=== PATIENT | female | born 1990 | race Caucasian/White ===

== ENCOUNTER 2019-11-03 13:35 | Emergency (ER) | payer MEDICAID ==
[~2019-11-03] VITALS: Ht 160 cm; Wt 68.0 kg
[2019-11-03 14:28] LABS: CLARITY,URINE CLOUDY (Clear); COLOR,URINE YELLOW (Yellow); GLUCOSE, URINE 100 mg/dl (Neg); KETONES,URINE NEGATIVE (Neg); LEUKOCYTE ESTERASE ,URINE MODERATE (Neg); NITRITES, URINE NEGATIVE (Neg); OCCULT BLOOD,URINE NEGATIVE (Neg); PROTEIN,URINE NEGATIVE (Neg); URINE HCG POSITIVE (NEG); UROBILINOGEN,URINE 0.2 E.U/dL (0.2-1.0)
[2019-11-03 14:29] LABS: UA COLLECTION TYPE CLN CATCH MIDSTREAM
[2019-11-03 14:30] LABS: BASOPHILS % (AUTO) 0.2 % (0-1); EOSINOPHILS # (AUTO) 0.1 X10'3 (0-0.9); EOSINOPHILS % (AUTO) 1.3 % (0-6); HEMATOCRIT 35.9 % (35.0-45.0); LYMPHOCYTES # (AUTO) 1.8 X10'3 (1.1-4.8); LYMPHOCYTES % (AUTO) 20.4 % (21-51); MEAN CORPUSCULAR HEMOGLOBIN 28.7 PG (27.0-31.0); MEAN CORPUSCULAR HGB CONC 33.5 g/dL (33.0-36.5); MEAN CORPUSCULAR VOLUME 85.6 FL (78-98); MONOCYTES # (AUTO) 0.5 X10'3 (0-0.9); NEUTROPHILS # (AUTO) 6.4 X10'3 (1.8-7.7); NEUTROPHILS % (AUTO) 72.1 % (42-75); PLATELET COUNT 236 X10'3 (140-440); RED BLOOD COUNT 4.19 X10'6 (4.20-5.60); RED CELL DISTRIBUTION WIDTH 13.6 % (11.5-14.5); WHITE BLOOD COUNT 8.9 X10'3 (4.5-11.0)
[2019-11-03 14:36] LABS: MUCUS STRANDS MODERATE /LPF (Neg)
[2019-11-03 14:37] LABS: BACTERIA,URINE 1+ /HPF (Neg); RBC,URINE 0-2 /HPF (0-2); WBC,URINE 0-4 /HPF (0-4)
[2019-11-03 14:38] LABS: SQUAMOUS EPITHELIAL CELL,UR MANY /LPF (FEW)
[2019-11-03 14:47] LABS: ALANINE AMINOTRANSFERASE 18 U/L (12-78); ALBUMIN 3.2 G/DL (3.4-5.0); ALBUMIN/GLOBULIN RATIO 0.7 (1.1-1.5); ALKALINE PHOSPHATASE 83 IU/L (46-116); AMYLASE 32 U/L (25-115); ASPARTATE AMINO TRANSFERASE 10 U/L (10-37); BILIRUBIN,TOTAL 0.1 MG/DL (0.1-1.0); BLOOD UREA NITROGEN 6 MG/DL (7-18); BUN/CREATININE RATIO 13.3 (6.6-38.0); CALCIUM 8.8 MG/DL (8.5-10.1); CHLORIDE 104 MMOL/L (99-107); CREATININE 0.45 MG/DL (0.40-0.90); GLUCOSE 114 MG/DL (70-104); LIPASE 124 U/L (73-393); POTASSIUM 3.1 MMOL/L (3.5-5.1); TOTAL CARBON DIOXIDE 24.3 MMOL/L (24-32); TOTAL PROTEIN 7.6 G/DL (6.4-8.2); eGFR > 90 ML/MIN
[2019-11-03 14:49] LABS: ANION GAP 13 (8-16); SODIUM 141 MMOL/L (135-145)
[2019-11-03] MEDS ORDERED: CefTRIAXone/D5W-Rocephin 1gm 50 ML IV ONE (15:40)
[2019-11-03] MEDS ORDERED: normal saline 1000ML IV soln IVB ONE (15:40)
[2019-11-03] MEDS ORDERED: CEPH500C5 PO (16:00)
[2019-11-03 17:31] VITALS: BP 98/62
== END 2019-11-03 17:45 | disposition home or self-care (01) ==
LOC: ER 13:36
DX: O23.02 Infections of kidney in pregnancy, second trimester (principal); Z3A.21 21 weeks gestation of pregnancy; Z90.49 Acquired absence of other specified parts of digestive tract; Z87.891 Personal history of nicotine dependence; Z88.5 Allergy status to narcotic agent; Z88.2 Allergy status to sulfonamides; Z88.8 Allergy status to other drugs, medicaments and biological substances; Z79.2 Long term (current) use of antibiotics
CPT/HCPCS: 36415; 80053; 81001; 81025; 82150; 83690; 85025; 96365; 99283; J0696; J7030